=== PATIENT | female | born 1975 | race Caucasian/White ===

== ENCOUNTER 2016-10-29 15:04 | Emergency (ER) | payer OTHER ==
[~2016-10-29] VITALS: Ht 175.3 cm; Wt 112.3 kg
[~2016-10-29 15:04] MED LIST: ADVIL200 MG PO; ALLEGRA ALLERG180 MG PO; BENADRYL25 MG PO; DILAUDID2 MG PO; FLONASE16 G1 BOTH NARES; NEXIUM 24HR20 MG PO; NYQUIL D COLD295 ML PO; TYLENOL REGULA325 MG PO; ZOFRAN4 MG PO
[2016-10-29 15:29] VITALS: BP 127/84
[2016-10-29 16:25] LABS: ADD MIUA? NO; BILIRUBIN NEGATIVE; BLOOD NEGATIVE; COLOR YELLOW ((YELLOW)); GLUCOSE (STRIP) NEGATIVE; KETONES NEGATIVE; LEUKOCYTES NEGATIVE; NITRITE NEGATIVE; PROTEIN (STRIP) NEGATIVE; SPECIFIC GRAVITY 1.012 (1.000-1.030); UROBILINOGEN 0.2 MG/DL (0.2-1.0)
[2016-10-29 16:58] LABS: HEMATOCRIT 42.1 % (36.0-46.0); MCH 29.7 PG (29.0-34.0); MCV 87.5 FL (83-99); MEAN PLAT.VOLUME 9.4 uM^3 (9.5-12.4); PLATELET COUNT 284 K/uL (156-360); RBC DIS.WIDTH-CV 12.9 % (11.8-14.6); RBC DIS.WIDTH-SD 41.4 % (39-53); RED BLOOD COUNT 4.81 M/uL (3.80-5.20); WHITE BLOOD COUNT 7.2 K/uL (4.1-10.2)
[2016-10-29 17:04] LABS: CHLORIDE 103 mEq/L (99-109); POTASSIUM 4.5 mEq/L (3.7-5.4); SODIUM 137 mEq/L (136-147)
[2016-10-29 17:06] LABS: GLUCOSE 80 mg/dL (70-99)
[2016-10-29 17:07] LABS: ANION GAP 12 MEQ/L (2-14)
[2016-10-29 17:10] LABS: GFR ESTIMATE (CALCULATED) 52 mL/min/
[2016-10-29 17:11] LABS: UREA NITROGEN (BUN) 9 mg/dL (9-23)
[2016-10-29] MEDS ORDERED: MOTRIN600 MG PO (18:47)
[2016-10-29] MEDS ORDERED: NORCO 5/3251 TABLET PO (18:47)
[2016-10-29] MEDS ORDERED: ZOFRAN4 MG PO (18:47)
== END 2016-10-29 18:55 | disposition home or self-care (01) ==
LOC: EME 15:04 → RME 15:04
PROVIDERS: Physician Assistant
DX: R10.9 Unspecified abdominal pain (principal); Q82.2 Congenital cutaneous mastocytosis; Z90.49 Acquired absence of other specified parts of digestive tract; Z90.710 Acquired absence of both cervix and uterus; Z91.040 Latex allergy status; Z88.5 Allergy status to narcotic agent; Z88.0 Allergy status to penicillin
CPT/HCPCS: 76770; 80048; 81003; 85027; 99281; 99283